=== PATIENT | male | born 1985 | race African-American/Black ===

== ENCOUNTER 2024-04-07 18:52 | Emergency (ER) | payer BC, OTHER ==
[~2024-04-07] VITALS: Ht 195.6 cm; Wt 121.0 kg
[2024-04-07 19:30] VITALS: BP 135/77; PULSE 89; RESP 30; TEMP 97.7; O2SAT 97
[2024-04-07] MEDS ORDERED: SODIUM CHLORIDE 0.9% 2,000 ML IV ONE (19:30)
[2024-04-07] MEDS ORDERED: SODIUM CHLORIDE 0.9% 1,000 ML IV ONE (19:30)
== END 2024-04-07 20:05 | disposition left against medical advice (07) ==
LOC: ER 18:52 → EDBD 18:52 → ER 20:05
DX: S01.111A Laceration without foreign body of right eyelid and periocular area, initial encounter (principal); R55 Syncope and collapse; F17.210 Nicotine dependence, cigarettes, uncomplicated; F12.90 Cannabis use, unspecified, uncomplicated; Z98.890 Other specified postprocedural states; W18.30XA Fall on same level, unspecified, initial encounter; Y93.89 Activity, other specified; Y92.89 Other specified places as the place of occurrence of the external cause; Y99.8 Other external cause status
CPT/HCPCS: 93005